=== PATIENT | male | born 1995 | race Two or more races ===

== ENCOUNTER 2016-12-28 23:18 | Emergency (ER) | payer SELFPAY ==
[2016-12-29] MEDS ORDERED: HYDROCODON-ACE1 EA16 PO (00:37)
[2016-12-29] MEDS ORDERED: AMOXICILLIN500 M1 PO (00:38)
== END 2016-12-29 01:19 ==
LOC: EDMED 23:18
PROC: 0HQ1XZZ Repair Face Skin, External Approach (ICD-10-PCS; principal; 2016-12-28)
DX: S01.112A Laceration without foreign body of left eyelid and periocular area, initial encounter (principal); W21.00XA Struck by hit or thrown ball, unspecified type, initial encounter